=== PATIENT | female | born 1980 | race Asian ===

== ENCOUNTER → 2020-09-06 09:04 | Outpatient (CLI) | payer OTHER, SELFPAY ==
[2020-09-06 09:54] LABS: Appearance Urine UA CLEAR; Bilirubin Urine UA NEGATIVE (NEGATIVE); Color Urine UA YELLOW; Glucose Urine UA 2+ g/dL (Negative); Ketones Urine UA NEGATIVE (NEGATIVE); Leukocyte Esterase Urine UA NEGATIVE (NEGATIVE); Nitrite Urine UA NEGATIVE (Negative); Occult Blood Urine UA TRACE-LYSED (Negative); Protein Urine UA TRACE (Negative); Specific Gravity Urine UA 1.015 (1.000-1.035); Urobilinogen Urine UA 0.2 E.U./dL (0.2)
[2020-09-06 09:55] LABS: Add Manual Diff / Slide Review NO; Basophils Absolute Auto 0 /uL (0-100); Basophils Percent Auto 0.3 % (0-2); Eosinophils Absolute Auto 200 /uL (0-450); Eosinophils Percent Auto 1.7 % (2-4); Hematocrit 46.7 % (36-46); Hemoglobin 15.6 g/dL (12.0-16.0); Lymphocytes Absolute Auto 2800 /uL (1100-4500); Lymphocytes Percent Auto 29.6 % (25-40); Mean Corpuscular HGB Conc 33.3 % (30-36); Mean Corpuscular Hemoglobin 30.7 PG (26-34); Mean Corpuscular Volume 92.1 fL (80-100); Monocytes Absolute Auto 500 /uL (0-900); Monocytes Percent Auto 5.3 % (3-14); Neutrophils Absolute Auto 6000 /uL (1500-7000); Neutrophils Percent Auto 63.1 % (50-75); Platelet Count 288 X10^3/uL (150-400); Red Blood Cell Count 5.07 X10^6/uL (4.0-5.2); Red Cell Distribution Width 12.6 % (11.6-14.8); White Blood Cell Count 9.4 X10^3/uL (4.5-11.0)
[2020-09-06 10:07] LABS: Alanine Aminotransferase 26 IU/L (<35); Albumin 4.5 g/dL (3.5-5.0); Albumin Globulin Ratio 1.2 (1.0-2.8); Alkaline Phosphatase 52 U/L (38-126); Aspartate Aminotransferase 26 IU/L (14-36); BUN Creatinine Ratio 25.8 (6-22); Bilirubin Total 0.5 mg/dL (0.2-1.3); Blood Urea Nitrogen 23 mg/dL (7-17); Calcium 9.5 mg/dL (8.4-10.2); Carbon Dioxide 30 mmol/L (22-32); Chloride 99 mmol/L (98-107); Cholesterol 169 mg/dL (140-199); Estimated Glomerular Filt Rate > 60.0 mL/min (>60); Globulin 3.8 g/dL (1.7-4.1); Glucose 146 mg/dL (70-100); HDL Cholesterol 32 mg/dL (40-60); HEMOLYSIS < 15 (0-50); Potassium 4.1 mmol/L (3.4-5.1); Sodium 138 mmol/L (137-145); Total Protein 8.3 g/dL (6.3-8.2); Triglycerides 446 mg/dL (35-150)
[2020-09-06 10:16] LABS: Creatinine Urine Random 100.8 mg/dL
[2020-09-06 10:20] LABS: Microalbumi Creatinin Ratio Ur 88.2 ug/mg CR (<30); Microalbumin Urine Random 8.9 mg/dL (0-1.6)
[2020-09-06 10:25] LABS: pH Urine UA 5.5 (4.5-8.0)
[2020-09-06 10:55] LABS: Hemoglobin A1C% w Est Avg Glu 7.7 % (4.0-6.0)
== END ==
PROVIDERS: PCP Registered Nurse; Referring Provider Registered Nurse; Visit Provider Registered Nurse
DX: R00.0 Tachycardia, unspecified (principal); I10 Essential (primary) hypertension; E11.9 Type 2 diabetes mellitus without complications; Z82.49 Family history of ischemic heart disease and other diseases of the circulatory system
CPT/HCPCS: 36415; 80053; 80061; 81003; 82043; 82570; 83036; 85025

== ENCOUNTER → 2020-10-22 14:01 | Outpatient (CLI) | payer OTHER, SELFPAY ==
--- NOTE | 2020-10-22 14:03 | DIET.PN ---
Diabetes Intake: Initial Assessment Assess: Mrs. Velasquez is a 40 YOF referred for type 2 diabetes. She reports good control since moving to [place] in May. Prior to her move she lived [place]es and enjoyed a variety of foods not following her dietary restrictions. She is monitoring her glucose 2-3x/day and walking daily. Labs: Per pt report: A1c: 7.7 FB-110 2hr PP: <130 Meds: glipizide 10mg metformin XR 1000mg BID Diet: per 24 hr recall: B: toast w/ coffee L: sandwich or soup w/ veggies D: fruit or 1/2 cup br rice w/ meat and veg Sn: banana, apple, crackers Wt: 134lb Ht: 63in BMI: 23.7 BP: 110/80 DX: Altered nutrition related laboratory values related to impaired glucose metabolism, lack of previous exposure to nutrition information as evidenced by pt report, diagnosis of diabetes, previous diet high in refined carbohydrates. Intervention: 1. Completed intake assessment. Discussed barriers to care. 2. Discussed pathophysiology of diabetes. Reviewed A1c and its correlation to blood glucose numbers. Discussed recommended BG ranges. 3. Discussed importance of self-monitoring, how often, and when to check. 4. Reviewed hyper/hypoglycemia and treatment. 5. Reviewed safe disposal of equipment (strip/lancets/insulin needles). 6. Created SMART goals for pt self-care and success. 7. Discussed program curriculum outline and class needs based on individual goals. SMART Goals: 1. Pt goal weight of 125lb through improvement in dietary habits including carb control and meal timing. 2. Pt goal A1c <7.0 through weight management and regular exercise. Monitor/Evaluate: Pt will attend full DSME program. Basic Nutrition class scheduled for ?. Today?s visit was done via tele [employer]. 1 hour was spent [id number] by video. Patient consented to receive these services via tele health using the [employer] application and phone. Participants in the tele conference were myself and the patient only. I was located at [facility] and the patient at his/her home.
== END ==
PROVIDERS: PCP Registered Nurse; Referring Provider Registered Nurse; Visit Provider Registered Nurse
DX: E11.9 Type 2 diabetes mellitus without complications (principal); Z79.84 Long term (current) use of oral hypoglycemic drugs; Z71.3 Dietary counseling and surveillance
CPT/HCPCS: G0108

== ENCOUNTER → 2021-02-06 13:57 | Outpatient (CLI) | payer OTHER, SELFPAY ==
[2021-02-06 15:05] LABS: Free T4, Direct Thyroxine 0.94 ng/dL (0.78-2.19)
[2021-02-06 15:19] LABS: Thyroid Stimulating Hormone 1.11 uIU/mL (0.47-4.68)
== END ==
PROVIDERS: PCP Registered Nurse; Referring Provider Registered Nurse; Visit Provider Registered Nurse
DX: R00.0 Tachycardia, unspecified (principal)
CPT/HCPCS: 36415; 84439; 84443

== ENCOUNTER → 2021-05-05 14:27 | Outpatient (CLI) | payer OTHER, SELFPAY ==
[2021-05-05 16:15] LABS: Add Manual Diff / Slide Review NO; Basophils Absolute Auto 0 /uL (0-100); Basophils Percent Auto 0.5 % (0-2); Eosinophils Absolute Auto 0 /uL (0-450); Eosinophils Percent Auto 0.6 % (2-4); Hematocrit 40.8 % (36-46); Hemoglobin 13.6 g/dL (12.0-16.0); Lymphocytes Absolute Auto 2600 /uL (1100-4500); Lymphocytes Percent Auto 31.3 % (25-40); Mean Corpuscular HGB Conc 33.2 % (30-36); Mean Corpuscular Hemoglobin 30.9 PG (26-34); Monocytes Absolute Auto 400 /uL (0-900); Monocytes Percent Auto 5.2 % (3-14); Neutrophils Absolute Auto 5100 /uL (1500-7000); Neutrophils Percent Auto 62.4 % (50-75); Platelet Count 286 X10^3/uL (150-400); Red Blood Cell Count 4.39 X10^6/uL (4.0-5.2); Red Cell Distribution Width 12.7 % (11.6-14.8); White Blood Cell Count 8.2 X10^3/uL (4.5-11.0)
[2021-05-05 16:27] LABS: Alanine Aminotransferase 21 IU/L (<35); Albumin 4.3 g/dL (3.5-5.0); Albumin Globulin Ratio 1.3 (1.0-2.8); Alkaline Phosphatase 35 U/L (38-126); Aspartate Aminotransferase 26 IU/L (14-36); BUN Creatinine Ratio 15.3 (6-22); Bilirubin Total 0.4 mg/dL (0.2-1.3); Blood Urea Nitrogen 13 mg/dL (7-17); Calcium 9.8 mg/dL (8.4-10.2); Carbon Dioxide 25 mmol/L (22-32); Chloride 102 mmol/L (98-107); Estimated Glomerular Filt Rate > 60.0 mL/min (>60); Globulin 3.3 g/dL (1.7-4.1); Glucose 206 mg/dL (70-100); HEMOLYSIS < 15 (0-50); Potassium 3.9 mmol/L (3.4-5.1); Sodium 137 mmol/L (137-145); Total Protein 7.6 g/dL (6.3-8.2)
[2021-05-05 16:50] LABS: Creatinine Urine Random 92.7 mg/dL
[2021-05-05 16:53] LABS: Microalbumi Creatinin Ratio Ur 106.7 ug/mg CR (<30); Microalbumin Urine Random 9.9 mg/dL (0-1.6)
[2021-05-05 16:59] LABS: Lipase 104 U/L (23-300)
== END ==
PROVIDERS: PCP Registered Nurse; Referring Provider Registered Nurse; Visit Provider Registered Nurse
DX: E11.9 Type 2 diabetes mellitus without complications (principal); I10 Essential (primary) hypertension; R00.0 Tachycardia, unspecified; R10.9 Unspecified abdominal pain
CPT/HCPCS: 36415; 80053; 82043; 82570; 83690; 85025

== ENCOUNTER → 2021-05-14 12:56 | Outpatient (CLI) | payer OTHER, SELFPAY ==
--- NOTE | 2021-05-14 12:57 | DI.US.S_ITS ---
PROCEDURE: US ABDOMEN COMPLETE INDICATIONS: ABDOMINAL PAIN TECHNIQUE: Real-time scanning was performed of the abdominal and retroperitoneal organs, with image documentation. COMPARISON: None. FINDINGS: Liver: Liver is diffusely increased in echogenicity. No focal hepatic abnormalities identified. Normal hepatic size. Gallbladder: No gallstones identified. Normal gallbladder wall. No pericholecystic fluid. Negative sonographic Urena sign. Biliary ducts: Intrahepatic bile ducts are non-dilated. Extrahepatic bile duct caliber measures 3.8 mm. Normal is 6-7 mm or less in diameter, or 10 mm or less post-cholecystectomy. Pancreas: Visualized portions of the pancreas are sonographically normal. Spleen: Spleen is normal in size and homogeneous in echotexture. Kidneys: Kidneys are normal in size and echotexture. Right kidney measures 12.5 cm long; left kidney measures 13.2 cm long. No hydronephrosis or nephrolithiasis. No solid masses. 10 mm left renal cyst. Aorta: Visualized aorta is normal in caliber at less than 3 cm. Iliacs: Proximal common iliac arteries are normal in caliber at less than 2.5 cm. IVC: Intrahepatic inferior vena cava is patent. Miscellaneous: No free abdominal fluid. IMPRESSION: 1. Increased hepatic echogenicity noted possibly related to hepatic steatosis but other sources of hepatocellular disease cannot be excluded. Recommend clinical correlation. 2. Left renal cyst. Dictated by: Fuad MCGINNIS Interpreted: Germán Woodall MD on 05/14/2021 at 14:04 Transcribed by: NIEVES on 05/14/2021 at 14:05 Approved by: Germán Woodall M.D. on 05/14/2021 at 14:46
== END ==
PROVIDERS: PCP Registered Nurse; Referring Provider Registered Nurse; Visit Provider Registered Nurse
DX: R10.9 Unspecified abdominal pain (principal); N28.1 Cyst of kidney, acquired
CPT/HCPCS: 76700

== ENCOUNTER → 2021-05-19 13:53 | Outpatient (CLI) | payer OTHER, SELFPAY | PROVIDERS: PCP Registered Nurse; Visit Provider Registered Nurse | DX: N64.52 Nipple discharge (principal) | CPT/HCPCS: 87070; 87075; 87205 ==

== ENCOUNTER → 2021-06-27 08:01 | Outpatient (CLI) | payer OTHER, SELFPAY ==
--- NOTE | 2021-06-27 08:03 | DI.MG.S_ITS ---
BILATERAL DIGITAL SCREENING MAMMOGRAM 3D/2D WITH CAD: 06/27/2021 CLINICAL: Routine screening. Baseline exam by default. No prior exams were available for comparison. The tissue of both breasts is heterogeneously dense. This may lower the sensitivity of mammography. Current study was also evaluated with a Computer Aided Detection (CAD) system. The right breast has post-operative findings. There is an intramammary node in the left breast. There is a possible irregular equal density asymmetry in the right breast posterior depth superior region seen on the mediolateral oblique view only. No other significant masses, calcifications, or other findings are seen in either breast. IMPRESSION: INCOMPLETE: NEEDS ADDITIONAL IMAGING EVALUATION The possible irregular equal density asymmetry in the right breast is indeterminate. Additional views with possible ultrasound are recommended. This exam was interpreted at Station ID: [id number]. NOTE: For mammograms, a report in lay terms will be sent to the patient. Approximately 15% of breast malignancies will not be visualized mammographically. In the management of a palpable breast mass, a negative mammogram must not discourage biopsy of a clinically suspicious lesion. Electronically Signed By: Jason rajan/:06/29/2021 07:26:51 letter sent: Additional Imaging Needed ACR BI-RADS Category 0: Incomplete 3340F
== END ==
PROVIDERS: PCP Registered Nurse; Referring Provider Registered Nurse; Visit Provider Registered Nurse
DX: Z12.31 Encounter for screening mammogram for malignant neoplasm of breast (principal); Z80.3 Family history of malignant neoplasm of breast
CPT/HCPCS: 77063; 77067

== ENCOUNTER → 2021-07-17 09:14 | Outpatient (CLI) | payer OTHER, SELFPAY ==
--- NOTE | 2021-07-17 | DI.MG.S_ITS ---
UNILATERAL RIGHT DIGITAL DIAGNOSTIC MAMMOGRAM 3D/2D WITH ADDITIONAL VIEWS: 07/17/2021 CLINICAL: Additional evaluation requested from prior study. Comparison is made to exam dated: 06/27/2021 [facility]. The tissue of right breast is heterogeneously dense. This may lower the sensitivity of mammography. The right breast has post-operative findings. Redemonstration of previously described possible irregular equal density asymmetry in the right breast posterior depth superior region seen on the mediolateral oblique view only. This is seen in additional views and is not significantly changed. A mole is noted in the area and marked on today's study. This correlates with the asymmetry of concern seen on recent screening mammogram. No other significant masses or calcifications are seen in the breast. IMPRESSION: BENIGN The possible irregular equal density asymmetry in the right breast is consistent with a skin lesion/mole and is benign. There is no mammographic evidence of malignancy. A 1 year screening mammogram is recommended. Findings and recommendations were conveyed to the patient during today's evaluation. This exam was interpreted at Station ID: [id number]. NOTE: For mammograms, a report in lay terms will be sent to the patient. Approximately 15% of breast malignancies will not be visualized mammographically. In the management of a palpable breast mass, a negative mammogram must not discourage biopsy of a clinically suspicious lesion. Electronically Signed By: Jason Cyr M.D. aty/:07/17/2021 10:28:48 letter sent: Normal Exam ACR BI-RADS Category 2: Benign Finding(s) 3342F
== END ==
PROVIDERS: PCP Registered Nurse; Referring Provider Registered Nurse; Visit Provider Registered Nurse
DX: R92.8 Other abnormal and inconclusive findings on diagnostic imaging of breast (principal); N64.89 Other specified disorders of breast
CPT/HCPCS: 77065; G0279

== ENCOUNTER → 2022-10-22 13:54 | Outpatient (CLI) | payer OTHER, SELFPAY ==
--- NOTE | 2022-10-22 | DI.NM.S_ITS ---
PROCEDURE: NM EXERCISE TREADMILL NON NUC COMPARISON: None. INDICATIONS: Tachycardia FINDINGS: the patient exercised for 9 minutes and 33 seconds, reaching 98% of maximum predicted of heart rate. Appropriate hemodynamic BP response to exercise (resting BP 122/86mmHg, max BP 190/94mmHg). 10.1 METs and NATALIE -8%. No diagnostic ST changes and no ectopy during exercise or recovery. No angina during the study. IMPRESSION: Low risk, normal treadmill ECG only stress test with above average exercise tolerance (NATALIE -8%). Dictated by: Xander Mac MD on 10/22/2022 at 16:17 Approved by: Xander Mac MD on 10/22/2022 at 16:19
[2022-10-22 16:22] LABS: COVID19 -Nasal RAPID Negative (Negative)
== END ==
PROVIDERS: Referring Provider Internal Medicine Cardiovascular Disease; Visit Provider Internal Medicine Cardiovascular Disease
DX: R00.0 Tachycardia, unspecified (principal); E11.9 Type 2 diabetes mellitus without complications; Z79.4 Long term (current) use of insulin; Z82.49 Family history of ischemic heart disease and other diseases of the circulatory system; Z20.822 Contact with and (suspected) exposure to COVID-19
CPT/HCPCS: 87635; 93017

== ENCOUNTER → 2023-03-24 12:08 | Outpatient (CLI) | payer OTHER, SELFPAY ==
--- NOTE | 2023-03-24 12:09 | DI.MRI.S_ITS ---
BREAST MRI OF BOTH BREASTS: 03/24/2023 CLINICAL: Breast cysts, dense breasts, family history of breast cancer. Comparison is made to exams dated: 07/17/2021 mammogram and 06/27/2021 mammogram - [facility]. PROCEDURE: MR BREAST BI WO/W CON INDICATIONS: breast cyst. FHx breast cancer, dense breast TECHNIQUE: The patient was placed prone in a dedicated breast imaging coil. Precontrast axial STIR and 3D FLASH without fat saturation sequences were obtained. Both before and after bolus injection of contrast, sequential 1-minute axial 3D FLASH with fat saturation sequences for 3 time points, with subtraction images and maximum intensity projections (MIP's) generated. Delayed sagittal FLASH images with fat saturation were also obtained. Computer-aided detection, including computer algorithm analysis of MRI image data for lesion detection and characterization, pharmacokinetic analysis, with further physician review for interpretation, was performed. FINDINGS: Image quality: Excellent. There is mild background parenchymal enhancement. Right breast: In the upper outer quadrant of the right breast, there is a posterior depth focal non-mass enhancement that mirrors the distribution of fibroglandular tissue in this region, measuring 6 x 9 x 12 millimeters (, ). At the 6 o'clock position of the right breast, there is a 7 x 5 x 5 millimeter oval circumscribed mass (, ). Neither of these findings have washout kinetics. Left breast: Background enhancement is seen, without focally suspicious mass, non-mass enhancement, or focus. Other findings: No suspicious axillary or internal mammary adenopathy. No significant findings identified in the mediastinum or partially seen upper abdomen. IMPRESSION: INCOMPLETE: NEEDS ADDITIONAL IMAGING EVALUATION IMPRESSION: Right breast: Focal non-mass enhancement in the upper outer quadrant (, ). Differential includes prominent background enhancing tissue. 7 x 5 millimeter oval circumscribed mass at the 6 o'clock position. (, ). No washout kinetics noted for either lesion. Ultrasound is recommended to further evaluate. Left breast: No suspicious findings. BIRADS 0 COMMENT: The imaging literature indicates that a negative contrast breast MRI examination has a high sensitivity and a moderate specificity for detecting and excluding invasive carcinomas to a detection threshold of 3-5 mm; nonetheless, appropriate clinical and mammographic follow-up are recommended. MRI is not sensitive for detecting DCIS (ductal carcinoma in situ) and may not detect large invasive neoplasms that show only minimal enhancement such as mucinous carcinoma. If there are suspicious calcifications or clinically worrisome palpable masses, then biopsy should still be considered. Invasive neoplasms can be hidden by co-existent and benign enhancement caused by mastitis, hormone therapy effects, radiation therapy, , and recent biopsy or surgery. False positive examinations can occur in a number of circumstances, including breasts that have recently been subject to invasive procedures and those that contain atypical ductal hyperplasia, hormonally stimulated glandular tissue, fat necrosis, or radial scars. This exam was interpreted at Station ID: [id number]. Electronically Signed By: Jairo Rouse M.D. lc/:03/24/2023 14:18:01 letter sent: Additional Imaging Needed ACR BI-RADS Category 0: Incomplete 3340F
== END ==
PROVIDERS: PCP Student in an Organized Health Care Education/Training Program; Referring Provider Surgery; Visit Provider Surgery
DX: R92.2 Inconclusive mammogram (principal); N64.52 Nipple discharge; Z80.3 Family history of malignant neoplasm of breast; N63.15 Unspecified lump in the right breast, overlapping quadrants
CPT/HCPCS: 77049; A9579

== ENCOUNTER → 2023-04-04 09:07 | Outpatient (CLI) | payer OTHER, SELFPAY ==
--- NOTE | 2023-04-04 09:07 | DI.US.S_ITS ---
LIMITED ULTRASOUND OF RIGHT BREAST: 04/04/2023 CLINICAL: Abnormal MRI. Comparison is made to exams dated: 03/24/2023 breast MRI, 07/17/2021 mammogram, and 06/27/2021 mammogram - [facility]. Real-time ultrasound of the right breast 6 o'clock and 9-11 o'clock regions was performed. Chang scale images of the real-time examination were reviewed. No mass or cyst seen on ultrasound in the regions of enhancement seen on breast MRI. IMPRESSION: SUSPICIOUS OF MALIGNANCY No mass or cyst seen on ultrasound in the regions of enhancement seen on breast MRI. Non-mass enhancement in the right breast at 11 o'clock posterior depth is at a low suspicion for malignancy. -An MRI guided biopsy is recommended. No ultrasound correlate for the small mass in the right breast at 6 o'clock middle depth. This finding is probably benign. -An MRI in 6 months is recommended. Exam findings were discussed with the patient. This exam was interpreted at Station ID: [id number]. Electronically Signed By: Maninder Srivastava M.D. slc/:04/04/2023 09:57:43 letter sent: Biopsy Required Ultrasound BI-RADS: 4a Low suspicion for malignancy
== END ==
PROVIDERS: PCP Student in an Organized Health Care Education/Training Program; Referring Provider Surgery; Visit Provider Surgery
DX: R92.2 Inconclusive mammogram (principal); Z80.3 Family history of malignant neoplasm of breast
CPT/HCPCS: 76642

== ENCOUNTER → 2023-11-09 11:12 | Outpatient (CLI) | payer OTHER, SELFPAY ==
--- NOTE | 2023-11-09 11:15 | DI.MRI.S_ITS ---
BREAST MRI OF BOTH BREASTS: 11/09/2023 CLINICAL: Short term follow Breast cancer. TECHNIQUE: The patient was placed prone in a dedicated breast imaging coil. Precontrast axial STIR and 3D FLASH without fat saturation sequences were obtained. Both before and after bolus injection of contrast, sequential 1-minute axial 3D FLASH with fat saturation sequences for 3 time points, with subtraction images and maximum intensity projections (MIP's) generated. Delayed sagittal FLASH images with fat saturation were also obtained. 20 cc ProHance IV contrast was administered. Computer-aided detection, including computer algorithm analysis of MRI image data for lesion detection and characterization, pharmacokinetic analysis, with further physician review for interpretation, was performed. COMPARISON: [facility], MR, MR BREAST BIOSPY WITH DEVICE PLACEMENT, 04/26/2023, 6:59. [facility], MR, MR BREAST BI WO/W CON, 03/24/2023, 12:21. FINDINGS: Image quality: Excellent. There is minimal background parenchymal enhancement. Right breast: Susceptibility artifact from a biopsy markers present in the eleven o'clock position posterior depth. There is no surrounding early arterial enhancement. In the 6 o'clock position middle depth, there is a 0.6 cm ovoid enhancing nodule with central hypointensity, T2 hyperintensity and T1 isointensity to tissue. No significant size change. Left breast: There are a few scattered benign-appearing structures, specifically a T2 hyperintense enhancing nodule in the upper inner quadrant most consistent with fibroadenoma or lymph node. This measures 0.5 cm, stable. There are a few nonenhancing T2 hyperintense circumscribed cysts in the lower outer quadrant, and occasional T1 hyperintensities, likely proteinaceous cysts. There is inferolateral posterior depth T1 hyperintensity suggestive of a lymph node. No suspicious left breast enhancement. Miscellaneous: No axillary or internal mammary chain adenopathy. The visible portions of the chest wall, liver, heart, and lungs appear normal. IMPRESSION: BENIGN 1. No change in size or development of suspicious morphology in the right breast 06:00 o'clock middle depth lesion, likely an intramammary lymph node versus fibroadenoma. 2. No suspicious enhancement around a right breast left o'clock biopsy clip, biopsy-proven benign adenosis and sclerosis. 3. Stable appearance to the left breast containing a few benign-appearing findings as described. 4. Continue annual screening mammography. BIRADS 2, benign COMMENT: The imaging literature indicates that a negative contrast breast MRI examination has a high sensitivity and a moderate specificity for detecting and excluding invasive carcinomas to a detection threshold of 3-5 mm; nonetheless, appropriate clinical and mammographic follow-up are recommended. MRI is not sensitive for detecting DCIS (ductal carcinoma in situ) and may not detect large invasive neoplasms that show only minimal enhancement such as mucinous carcinoma. If there are suspicious calcifications or clinically worrisome palpable masses, then biopsy should still be considered. Invasive neoplasms can be hidden by co-existent and benign enhancement caused by mastitis, hormone therapy effects, radiation therapy, , and recent biopsy or surgery. False positive examinations can occur in a number of circumstances, including breasts that have recently been subject to invasive procedures and those that contain atypical ductal hyperplasia, hormonally stimulated glandular tissue, fat necrosis, or radial scars. This exam was interpreted at Station ID: [id number]. Electronically Signed By: Enedina fitzgerald/:11/11/2023 13:14:24 Entry: - 11/11/2023 13:14:24 letter sent: Normal Exam ACR BI-RADS Category 2: Benign Finding(s) 3342F
== END ==
LOC: MRI 11:13
PROVIDERS: PCP Student in an Organized Health Care Education/Training Program; Referring Provider Surgery; Visit Provider Surgery
DX: R92.8 Other abnormal and inconclusive findings on diagnostic imaging of breast (principal); N63.15 Unspecified lump in the right breast, overlapping quadrants; N60.02 Solitary cyst of left breast; Q83.9 Congenital malformation of breast, unspecified; Z80.3 Family history of malignant neoplasm of breast
CPT/HCPCS: 77049; A9579